=== PATIENT | female | born 1995 | race Caucasian/White ===

== ENCOUNTER 2017-03-14 18:47 | Emergency (ER) | payer BC ==
[2017-03-14 19:19] VITALS: BP 115/72
--- NOTE | 2017-03-14 19:47 | UC ---
Complaint Female HPI - HPI Summary HPI Summary: 1. Pt present with urinary c/o dysuria, frequency, urgency and low back discomfort. Pt was given 3 day prescription for Cipro 1 week ago and was feeling better but now reports that over the last 24 hours her urinary symptoms have worsened . Pt reports that she has "chronic kidney infection" . 2. Pt c/o sore throat X 1 day. Pt was recently on vacation and states she has not slept very much in the last week and traveled today from [place] - History Of Current Complaint Chief Complaint: UCGU Stated Complaint: SORE THROAT, BACK PAIN Time Seen by Provider: 03/14/17 19:29 Hx Obtained From: Patient Hx Last Menstrual Period: 03/04/17 ?: No Onset/Duration: Sudden Onset, Lasting Days - 1, Worse Since - onset Timing: Constant Severity Initially: Mild Severity Currently: Moderate Character: Dull Aggravating Factor(s): Urination Associated Signs And Symptoms: Positive: Back Pain - Allergies/Home Medications Allergies/Adverse Reactions: Allergies Allergy/AdvReac Type Severity Reaction Status Date / Time No Known Allergies Allergy Verified 03/14/17 19:19 Home Medications: Home Medications Escitalopram Oxalate [Lexapro 10 mg] 10 mg PO DAILY 03/14/17 [History Confirmed 03/14/17] PMH/Surg Hx/FS Hx/Imm Hx Previously Healthy: Yes GI/ History: Other - UTI 1 week ago Other GI/ History: UTI - Surgical History Surgical History: Yes Surgery Procedure, Year, and Place: 2012 Ovarian tumor removed. IUD placed 04/01 - Family History Known Family History: Positive: Cardiac Disease - Social History Occupation: Student Lives: With Family Alcohol Use: Occasionally Substance Use Type: None Substance Use Comment - Amount & Last Used: RARELY Smoking Status (MU): Light Every Day Tobacco Smoker Type: Cigarettes Amount Used/How Often: 3-4 per day Have You Smoked in the Last Year: Yes - Immunization History Most Recent Influenza Vaccination: 2012 Review of Systems Constitutional: Fatigue Skin: Negative Eyes: Negative ENT: Sore Throat Respiratory: Negative Cardiovascular: Negative Gastrointestinal: Negative Genitourinary: Dysuria, Frequency, Urgency, Other - low back pain Motor: Negative Neurovascular: Negative Musculoskeletal: Myalgia - low back pain Neurological: Negative Psychological: Negative All Other Systems Reviewed And Are Negative: Yes Physical Exam Triage Information Reviewed: Yes Appearance: Ill-Appearing Vital Signs: Initial Vital Signs Temp 99.6 F 03/14/17 19:12 Pulse 99 03/14/17 19:12 Resp 14 03/14/17 19:12 BP 115/72 03/14/17 19:12 Pulse Ox 99 03/14/17 19:12 Vital Signs Reviewed: Yes Eye Exam: Normal ENT: Positive: Tonsillar swelling, Tonsillar exudate Dental Exam: Normal Neck exam: Normal Respiratory Exam: Normal Cardiovascular Exam: Normal Abdominal Exam: Other Abdomen Description: Positive: CVA Tenderness (R), CVA Tenderness (L) Musculoskeletal Exam: Normal Neurological Exam: Normal Psychological Exam: Normal Skin Exam: Normal Complaint Female Dx - Course Course Of Treatment: I discussed with the pt the results of the UA and referred her to Dr. Toñito Torrez, urologist. - Differential Dx/Diagnosis Differential Diagnosis/HQI/PQRI: Urinary Tract Infection, Other - pyelonephritis , tonsillitis Provider Diagnoses: dysuria. hematuria. tonsillitis Discharge - Discharge Plan Condition: Stable Disposition: HOME Prescriptions: Cephalexin CAP* [Keflex 500 CAP*] 500 mg PO Q12H #14 cap Patient Education Materials: Hematuria (ED), Tonsillitis (ED), Dysuria (ED) Referrals: Corwin Segal MD [Medical Doctor] - Aiden Clark DO [Primary Care Provider] - If Needed Additional Instructions: Please follow up with your PCP as needed. Please make an appointment with your urologist as soon as possible for continuity of care.
== END 2017-03-14 20:13 | disposition home or self-care (01) ==
LOC: UCCORT 18:47
DX: R30.0 Dysuria (principal); R31.9 Hematuria, unspecified; J03.90 Acute tonsillitis, unspecified; Z87.440 Personal history of urinary (tract) infections; F17.210 Nicotine dependence, cigarettes, uncomplicated
CPT/HCPCS: 81003; 87651; 99212; G0463